=== PATIENT | male | born 1950 | race Caucasian/White ===

== ENCOUNTER → 2025-05-23 14:04 | Outpatient (BNVA) | payer MEDICARE, BC, SELFPAY | PROVIDERS: PCP Family Medicine; Referring Provider Family Medicine; Visit Provider Student in an Organized Health Care Education/Training Program | DX: M54.15 Radiculopathy, thoracolumbar region (principal) | CPT/HCPCS: 99204 ==

== ENCOUNTER → 2025-06-15 00:18 | Outpatient (CLI) | payer MEDICARE, BC, SELFPAY ==
--- NOTE | 2025-06-15 12:35 | DI.MRI_ITS ---
Exam(s) MR LUMBAR SPINE WO EXAM: MR LUMBAR SPINE WO CLINICAL HISTORY: PAIN,LUMBAR RADICULOPATHY,M54.16. TECHNIQUE: Multiplanar multisequence MRI of the Lumbar spine was performed. COMPARISON: No exams were available for comparison FINDINGS: Five lumbar vertebrae are presumed Conus medullaris is at the L1 level.. There is no evidence of conus mass nor subjacent clumping of intrathecal nerve roots to suggest arachnoiditis. The distal thecal sac appears unremarkable.There is no evidence of Tarlov intrasacral cysts nor other significant findings within the sacral canal Bones:There are no fractures nor ominous osseous lesions in the lumbar vertebral bodies and visualized sacrum. There are Modic type 1 sub endplate marrow edema changes both sides the disc space at L2-3 level. With respect to the individual levels... T12-L1: Unremarkable L1-2: Preserved disc height. There is symmetrical annular bulging without a dominant disc herniation. Central canal dimensions are lower normal. There is no significant foraminal stenosis. Facet joints unremarkable. L2-3: This level exhibits advanced relatively uniform disc space narrowing and there are Modic type 1 sub endplate marrow edema changes on both sides the disc space but more prominent on the right side where there are also lateral right osteophytes. Posteriorly there is some osteophytic ridging but no dominant disc herniation. There is mild central spinal canal stenosis due to the posterior bony ridging and short AP dimensions the pedicles and there are mild degenerative changes in the facet joints. No significant ligamentum flavum hypertrophy. There does not appear to be significant foraminal stenosis on either side, despite the significant disc height loss. L3-4: This level exhibits advanced disc space narrowing and right-sided osteophytes. Posteriorly there is some posterior osseous ridging but without a significant disc herniation and central canal dimensions are lower normal. There is no foraminal stenosis on the left side. Minimal foraminal stenosis on the right side. L4-5: This level exhibits chronic advanced disc space narrowing. Posteriorly there is some osteophytic ridging but no distinct disc herniation and central canal dimensions are lower normal. There is minimal bilateral foraminal stenosis. There are moderate degenerative changes in the facet joints. L5-S1: This level exhibits chronic disc space narrowing. No disc herniation nor central canal stenosis. Mild bilateral foraminal stenosis due to the disc height loss. The facet joints appear unremarkable at this level. Soft tissues: paraspinal soft tissues appear unremarkable. IMPRESSION: 1. There is chronic advanced disc space narrowing at L2-3, L3-4, L4-5, and L5-S1 levels. There are Modic type 1 sub endplate marrow edema changes on the right side of the L2-3 level. 2. There is no dominant disc herniation but there is mild central canal stenosis at L2-3 level due to the posterior bony ridging, short AP dimensions of the pedicles and facet arthropathy. There does not appear to be significant foraminal stenosis on either side at this level. 3. Other findings as above. DATA REPOSITORY:
--- NOTE | 2025-06-15 13:00 | DI.MRI_ITS ---
Exam(s) MR THORACIC SPINE WO EXAM: MR THORACIC SPINE WO CLINICAL HISTORY: PAIN,radiculopathy, m54.15. TECHNIQUE: Multiplanar multisequence MRI of the Thoracic spine was performed. COMPARISON: MR MR LUMBAR SPINE WO from 06/15/2025 FINDINGS: Bones: The vertebral body heights are well maintained. Alignment is satisfactory. The marrow signal characteristics are unremarkable. Cord: The thoracic cord is normal size and signal intensity. No intrinsic cord lesion is present. Soft tissues: Normal. Discs: There are small endplate osteophytes, greater in the lower thoracic levels. There is mild narrowing of the disc spaces anteriorly in the mid the thoracic levels. There is moderate narrowing of the T7-8 and T8-9 discs. There is no central canal stenosis or neural foraminal narrowing at these levels. At T11-12, there are small osteophytes osteophytes projecting posteriorly. There also right-sided facet osteophytes which mildly encroach into the central canal with there is no overall spur central canal stenosis. There is moderate right neural foraminal narrowing at this level. There is also a tiny nerve root sheath cyst on the right. There are facet degenerative changes at T T12-L1 but no significant neural foraminal narrowing or central canal stenosis. IMPRESSION: Degenerative disc changes combine with right-sided facet osteophytes to and small nerve root sheath cyst to cause moderate right neural foraminal narrowing. There is no significant central canal stenosis or disc herniation at any level. DATA REPOSITORY:
== END ==
LOC: DI 00:18
PROVIDERS: PCP Family Medicine; Visit Provider Student in an Organized Health Care Education/Training Program
DX: M48.02 Spinal stenosis, cervical region (principal); M48.062 Spinal stenosis, lumbar region with neurogenic claudication; M54.15 Radiculopathy, thoracolumbar region
CPT/HCPCS: 72146; 72148

== ENCOUNTER 2025-07-05 07:32 | Outpatient (CLI) | payer MEDICARE, BC, SELFPAY ==
[2025-07-05 07:44] VITALS: BP 166/82; PULSE 48; RESP 18; TEMP 36.5; O2SAT 99
--- NOTE | 2025-07-05 07:54 | PDOC.PAIN ---
Date of service: 07/05/25 Time of Service: 08:50 Pain Managment Procedure Note Procedure Note Procedure Note: Thoracic Selective Nerve Block/ Transforaminal Epidural Steroid Injection ? Location: RIGHT T11 ? Pre-procedure Diagnosis: M54.14- Radiculopathy, thoracic region ? Post-procedure Diagnosis:? The same as above ? Sedation:? none ? Estimated blood loss:? less than 2 cc ? Surgeon:? Cali Lott MD COMMENT: Patient was seen by Dr. Parnell. He has right-sided pain in the distribution of T11. MRI 06/15/2025-At T11-12, there are small osteophytes osteophytes projecting posteriorly. There also right-sided facet osteophytes which mildly encroach into the central canal with there is no overall spur central canal stenosis. There is moderate right neural foraminal narrowing at this level. There is also a tiny nerve root sheath cyst on the right. There are facet degenerative changes at T T12-L1 but no significant neural foraminal narrowing or central canal stenosis. ? Procedure Detail:?? The procedure and potential risks were explained to the patient and informed written consent was obtained. The patient was escorted to the procedure room and placed in the prone position. Pillows were utilized for proper positioning and comfort. Time out was performed in the procedure room with nursing staff confirming the patient's identity, procedure to be performed, allergies, and any blood thinning or anti-platelet medications. The patient's mid back was prepped with ChloraPrep and draped in a sterile fashion. Sterile gloves were used, a face mask was worn, and new single dose vials of all medications were used with the top being swabbed with alcohol and given time to dry prior to withdrawal of medication. A right-sided oblique fluoroscopic view was obtained, with visualization of T11-12. Lidocaine 1% was used to anesthetize the skin. The tip of a 22-gauge, Quincke needle was advanced toward the 6 o'clock position of the superior pedicle at the target level.? It was advanced just under the pedicle to the neural foramen T11-12. Correct needle placement was confirmed through review of the fluoroscopy. Next, following negative aspiration, 1cc's of Omnipaque 240 contrast was injected under live fluoroscopy which showed good flow throughout the epidural space and no evidence of vascular flow or flow into adjacent compartments. Next, following negative aspiration, 15mg of preservative-free dexamethasone and 0.5ml of 0.5% bupivacaine was injected. The needle was gently removed.? ? The patient tolerated the procedure well and was discharged home with instructions.? Permanent images saved and recorded. Plan:? Follow up prn PAIN: PRE PROCEDURE 08/16 POST PROCEDURE COMMENT: Discussed with patient that could try different approach to T11 - interlaminar with a catheter or focus on the T11-12 facet and inject that. Coding Conscious Sedation used for procedure: No CPT Codes: Transforaminal Lumbar/Sacral (includes fluoro) - [id number] ([id number] ~G) thoracic transforminal [id number] Additional Codes: Date of Service () Diagnoses: M54.14- Radiculopathy, thoracic region
[2025-07-05 08:26] VITALS: PULSE 50; O2SAT 98
[2025-07-05 08:30] VITALS: PULSE 48; O2SAT 99
--- NOTE | 2025-07-05 08:43 | DI.RAD_ITS ---
Exam(s) XR PAIN CLINIC THORACIC SP 2V EXAM: XR PAIN CLINIC THORACIC SP 2V CLINICAL HISTORY: Dx: compression of the T11 nerve root. TECHNIQUE: Fluoroscopy was provided for the referring physician for guidance with performing pain clinic injection procedure. COMPARISON: No exams were available for comparison FINDINGS: Please see procedure note for details. Fluoro time: 29 seconds RADIATION DOSE DELIVERED: Ka,r=4.4 mGy
[2025-07-05] MEDS: Nerve Block Tray 1 EACH MC (08:48)
[2025-07-05] MEDS: Omnipaque 240 MG/ML 50 ML BTL IJ (08:48)
[2025-07-05] MEDS: Dexamethasone Sod. Phos./Pres-Free 10 MG/ML VIAL IJ (08:49)
[2025-07-05] MEDS: Bupivacaine 0.5% Pres-Free 10 ML VIAL IJ (08:49)
== END 2025-07-05 07:33 | disposition home or self-care (01) ==
PROVIDERS: PCP Family Medicine; Visit Provider Anesthesiology Pain Medicine
DX: M54.6 Pain in thoracic spine (principal); M54.14 Radiculopathy, thoracic region
CPT/HCPCS: 64479; 64483; 72070; J0665; J1100; Q9967